=== PATIENT | female | born 2000 | race Caucasian/White ===

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

== ENCOUNTER 2019-02-19 19:06 | Emergency (ER) | payer SELFPAY ==
[~2019-02-19] VITALS: Ht 152.4 cm; Wt 68.3 kg
[~2019-02-19 19:06] MED LIST: ACET325T33 PO; BACL10TA PO; IBUP-1561 PO; SULF1TAB31 PO
[2019-02-19 19:08] VITALS: BP 112/66; PULSE 77; RESP 16; Ht 152.4 cm; Wt 68.3 kg
[2019-02-19] MEDS ORDERED: KETOROLAC 60 MG INJ IM STA (23:05)
[2019-02-19] MEDS ORDERED: traMADol 50 MG TAB PO ONE (23:30)
[2019-02-20] MEDS ORDERED: NAPR-985 PO (02:24)
--- NOTE | 2019-02-25 02:12 | ERD ---
ER Documentation Chief Complaint Chief Complaint R ankle/leg pain s/p fall down stairs on friday HPI History of Present Illness: 18-year-old female no past medical history coming today with complaint of right ankle pain and right foot pain secondary to fall downstairs. Patient reports that injury occurred 5 days ago and the pain persists. At home pharmacological/nonpharmacological treatment for symptoms: Acetaminophen and crutches Denies social concerns; Denies recent foreign travel ROS All systems reviewed and are negative except as per history of present illness. Medications Home Meds Active Scripts Naproxen* (Naprosyn*) 500 Mg Tablet, 500 MG PO BID for zoey/inflammation, #30 TAB Prov:IDA HERNANDEZ NP 02/20/19 Sulfamethoxazole/Trimethoprim* (Bactrim Ds* Tablet) 1 Each Tablet, 1 TAB PO BID for 3 Days, #6 TAB Prov:ZAC TORREZ MD 05/11/18 Baclofen* (Baclofen*) 10 Mg Tablet, 10 MG PO TID for 5 Days, #15 TAB Prov:ZAC TORREZ MD 05/11/18 Acetaminophen* (Tylenol*) 325 Mg Tablet, 1 TAB PO Q6 PRN for PAIN AND OR ELEVATED TEMP, #20 TAB Prov:ZAC TORREZ MD 05/11/18 Ibuprofen* (Motrin*) 400 Mg Tab, 400 MG PO Q8, #30 TAB Prov:ZAC TORREZ MD 05/11/18 Allergies Allergies: Coded Allergies: No Known Allergy (Unverified , 03/03/17) PMhx/Soc Medical and Surgical Hx: pt denies Medical Hx, pt denies Surgical Hx History of Surgery: No Anesthesia Reaction: No Hx Neurological Disorder: No Hx Respiratory Disorders: No Hx Cardiac Disorders: No Hx Psychiatric Problems: No Hx Miscellaneous Medical Probl: No Hx Alcohol Use: No Hx Substance Use: No Hx Tobacco Use: No Smoking Status: Never smoker FmHx Family History: No diabetes, No coronary disease Physical Exam Physical Exam Const: No acute distress Head: Atraumatic Eyes: Normal Conjunctiva ENT: Normal External Ears, Nose and Mouth. Neck: Full range of motion. No meningismus. Resp: Clear to auscultation bilaterally Cardio: Regular rate and rhythm, no murmurs Abd: Soft, non tender, non distended. Normal bowel sounds Skin: No petechiae or rashes Back: No midline or flank tenderness Ext: No cyanosis, or edema; tenderness to palpation over dorsal aspect of right foot, tenderness to palpation to lateral and medial aspect of ankle Neur: Awake and alert Psych: Normal Mood and Affect Results 24 hrs Laboratory Tests Test 02/19/19 23:24 POC Beta HCG, Qualitative NEGATIVE Current Medications Medications Dose Sig/Lisa Start Time Status Last (Trade) Ordered Route PRN Stop Time Admin Dose Reason Admin Ketorolac 60 mg ONCE STAT 02/19/19 DC 02/19/19 Tromethamine IM 23:05 02/19/19 23:31 (Toradol) 23:06 Tramadol 50 mg ONCE ONCE 02/19/19 DC 02/19/19 HCl PO 23:30 02/19/19 23:32 (Ultram) 23:31 Procedures/MDM ED course includes a thorough examination and history. Medications: Tramadol, ketorolac Imaging: Right foot, right ankle Labs: Urine Low suspicion for life-threatening medical emergency. Otherwise healthy patient presenting with constellation of symptoms likely representing uncomplicated [x] as characterized by history, physical exam findings, lab findings, radiology findings. Urine negative. X-ray results showing: Ankle iMPRESSION: No evidence of fracture. .Gagandeep Buckley MD, Date Time Electronically viewed and signed by .Gagandeep Buckley MD, MD FootIMPRESSION: No evidence of fracture. .Gagandeep Buckley MD, Date Time Electronically viewed and signed by .Gagandeep Buckley MD, Patient reassessment: ED PERLA wrap application orders for filled. Patient hemodynamically stable. Patient with decreased pain after medication ministration. Patient able to walk without severe difficulty. No respiratory distress, otherwise relatively well appearing and nontoxic. Patient educated on diagnoses, prescriptions, follow-up care, return precautions. Strict return precautions given for worsening condition; questions answered discharge. Disposition for discharge with followup in 2 days with PCP/clinic. Departure Diagnosis: Primary Impression: Sprain of ankle, right Encounter type: initial encounter Involved ligament of ankle: unspecified ligament Qualified Codes: S93.401A - Sprain of unspecified ligament of right ankle, initial encounter Additional Impression: Injury of ankle, right Encounter type: initial encounter Qualified Codes: S99.911A - Unspecified injury of right ankle, initial encounter Condition: Stable Patient Instructions: R.I.C.E., Treating Ankle Sprains Referrals: [facility] YOU HAVE RECEIVED A MEDICAL SCREENING EXAM AND THE RESULTS INDICATE THAT YOU DO NOT HAVE A CONDITION THAT REQUIRES URGENT TREATMENT IN THE EMERGENCY DEPARTMENT. FURTHER EVALUATION AND TREATMENT OF YOUR CONDITION CAN WAIT UNTIL YOU ARE SEEN IN YOUR DOCTORS OFFICE WITHIN THE NEXT 1-2 DAYS. IT IS YOUR RESPONSIBILITY TO MAKE AN APPOINTMENT FOR FOLOW-UP CARE. IF YOU HAVE A PRIMARY DOCTOR --you should call your primary doctor and schedule an appointment IF YOU DO NOT HAVE A PRIMARY DOCTOR YOU CAN CALL OUR PHYSICIAN REFERRAL HOTLINE AT IF YOU CAN NOT AFFORD TO SEE A PHYSICIAN YOU CAN CHOSE FROM THE FOLLOWING [facility] [address] [facility]. [facility] [address] [facility]. [facility] [address] [facility] [facility] [address] [facility] [facility] [address] [facility]. [facility]. [address] [facility]. [facility] YOU HAVE RECEIVED A MEDICAL SCREENING EXAM AND THE RESULTS INDICATE THAT YOU DO NOT HAVE A CONDITION THAT REQUIRES URGENT TREATMENT IN THE EMERGENCY DEPARTMENT. FURTHER EVALUATION AND TREATMENT OF YOUR CONDITION CAN WAIT UNTIL YOU ARE SEEN IN YOUR DOCTORS OFFICE WITHIN THE NEXT 1-2 DAYS. IT IS YOUR RESPONSIBILITY TO MAKE AN APPOINTMENT FOR FOLOW-UP CARE. IF YOU HAVE A PRIMARY DOCTOR --you should call your primary doctor and schedule and appointment IF YOU DO NOT HAVE A PRIMARY DOCTOR YOU CAN CALL OUR PHYSICIAN REFERRAL HOTLINE AT . IF YOU CAN NOT AFFORD TO SEE A PHYSICIAN YOU CAN CHOSE FROM THE FOLLOWING [facility] INSTITUTIONS: [facility] [address] [place] [address] [facility] [address] [place] [address] [facility] [address] [place] [address] Additional Instructions: Thank you very much for allowing us to participate in your care. Your health and safety is our top priority at [facility]. It is important to read all discharge instructions and education provided in your discharge packet. *No broken bones/fractures seen on x-ray. Continue use of crutches. Rest. Ice . Compression. Elevation.* *In the next 2 to 3 days, follow-up with your primary care doctor for further evaluation and possible further testing.* Call your primary care doctor TOMORROW for an appointment during the next 2-4 days and bring all the information and medications prescribed. He continued to have pain Have prescriptions filled and follow precisely the directions on the label. -Naproxen is a anti-inflammatory/pain medication; take this medication daily as prescribed for the next week to help with swelling/inflammation/pain. If the symptoms get worse and your provider is unavailable, return to the Emergency Department immediately. IDA HERNANDEZ NP February 25, 2019 02:12
== END 2019-02-20 02:41 | disposition home or self-care (01) ==
LOC: FTE 19:06
DX: S93.401A Sprain of unspecified ligament of right ankle, initial encounter (principal); W10.9XXA Fall (on) (from) unspecified stairs and steps, initial encounter; Y92.9 Unspecified place or not applicable
CPT/HCPCS: 73610; 73630; 81025; 96372; 99284; J1885